=== PATIENT | female | born 1970 | race Caucasian/White ===

== ENCOUNTER 2018-11-19 08:55 | Inpatient (IN) | payer OTHER ==
[2018-11-19] MEDS: LACTATED RINGER'S 1,000 ML IV (10:00)
[2018-11-19] MEDS ORDERED: TRANEXAMIC ACID 1GM/100ML(PMX) 100 ML (10:18)
[2018-11-19] MEDS ORDERED: LIDOCAINE 2% (SDV) 5 ML INJ (10:55)
[2018-11-19] MEDS ORDERED: PROPOFOL 20 ML (10:55)
[2018-11-19] MEDS ORDERED: ROCURONIUM 50 MG INJ ×2 (10:56→10:57)
[2018-11-19] MEDS ORDERED: FENTAnyl 50 MCG/ML VIAL (10:58)
[2018-11-19] MEDS ORDERED: MIDAZOLAM 1 MG/ML 2 ML INJ (10:58)
[2018-11-19] MEDS ORDERED: CEFAZOLIN 1 GM INJ (11:35)
[2018-11-19] MEDS: POLYMYXIN/BACITRACIN 1L IRRIG (12:17)
[2018-11-19] MEDS: POLYMYXIN B 500000 UNIT INJ (12:18)
[2018-11-19] MEDS: BACITRACIN 50000 UNITS INJ (12:18)
[2018-11-19] MEDS ORDERED: DEXAMETHASONE 4 MG/ML 5 ML INJ (13:03)
[2018-11-19] MEDS ORDERED: ONDANSETRON 4 MG INJ (13:03)
[2018-11-19] MEDS ORDERED: BUPIVACAINE 0.5% (SDV) 30 ML INJ (13:31)
[2018-11-19] MEDS ORDERED: NEOSTIGMINE 3 MG/3 ML SYRINGE (13:33)
[2018-11-19] MEDS ORDERED: GLYCOPYRROLATE 0.4 MG INJ (13:33)
[2018-11-19] MEDS ORDERED: hydrALAzine 20 MG INJ IV (14:00)
[2018-11-19] MEDS ORDERED: EPHEDrine 25 MG/5 ML SYG IV (14:00)
[2018-11-19] MEDS ORDERED: ALBUTEROL 0.083% (NEB) 2.5 MG/3 ML AMP HHN (14:00)
[2018-11-19] MEDS ORDERED: DIPHENHYDRAMINE 50 MG INJ IV (14:00)
[2018-11-19] MEDS ORDERED: FENTAnyl 50 MCG/ML VIAL IV ×3 (14:00)
[2018-11-19] MEDS ORDERED: MEPERIDINE 25 MG INJ IV (14:00)
[2018-11-19] MEDS ORDERED: HYDROmorphONE 1 MG/5 ML IV SYRINGE IV ×2 (14:00)
[2018-11-19] MEDS ORDERED: METOCLOPRAMIDE 10 MG INJ IV (14:00)
[2018-11-19] MEDS ORDERED: LABETALOL HCL 20MG INJ IV (14:00)
[2018-11-19] MEDS ORDERED: KETOROLAC 30 MG INJ IV (14:00)
[2018-11-19] MEDS ORDERED: NACL 0.9% 3 ML SYG IV (14:30)
[2018-11-19] MEDS: ONDANSETRON 4 MG INJ IV ×3 (14:30→20:35)
[2018-11-19] MEDS ORDERED: oxyCODONE 5 MG TAB PO (14:30)
[2018-11-19] MEDS ORDERED: NALOXONE (0.4 MG/ML) INJ IV (14:30)
[2018-11-19] MEDS: HYDROmorphONE 1 MG/5 ML IV SYRINGE IV (14:44)
[2018-11-19] MEDS: CEFAZOLIN 2 GM/50 ML (PMX) 50 ML IVPB ×2 (14:44→22:00)
[2018-11-19] MEDS: DOCUSATE SODIUM 100 MG CAP PO (14:44)
[2018-11-19] MEDS: SOD CHLORIDE 0.9% 1,000 ML IV (16:06)
[2018-11-19] MEDS ORDERED: ALPRAZOLAM 1 MG TAB PO (17:00)
[2018-11-19] MEDS: HYDROmorphONE 1 MG/ML SYG IV (17:57)
[2018-11-19] MEDS: clonAZEPAM 0.5 MG TAB PO (20:36)
[2018-11-19] MEDS: METOPROLOL 50 MG TAB PO (20:36)
[2018-11-19] MEDS: AMLODIPINE 10 MG TAB PO (20:37)
[2018-11-19] MEDS: oxyCODONE 5 MG TAB PO (21:56)
[2018-11-19] MEDS: ZOLPIDEM 5 MG TAB PO (22:36)
[2018-11-20] MEDS: ONDANSETRON 4 MG INJ IV ×2 (01:42→09:03)
[2018-11-20] MEDS: SOD CHLORIDE 0.9% 1,000 ML IV ×2 (02:51→20:18)
[2018-11-20] MEDS: PANTOPRAZOLE (EC) 40 MG TAB PO (05:16)
[2018-11-20] MEDS: oxyCODONE 5 MG TAB PO ×4 (05:28→19:49)
[2018-11-20] MEDS: CEFAZOLIN 2 GM/50 ML (PMX) 50 ML IVPB (06:01)
[2018-11-20 06:15] LABS: ADD MAN DIFF? NO
[2018-11-20 06:28] LABS: BASOPHILS % 0.1 % (0.0-2.0); HEMATOCRIT 31.8 % (37.0-47.0); HEMOGLOBIN 10.2 g/dl (12.0-16.0); LYMPHOCYTES % 8.2 % (15.0-51.0); MEAN CORPUSCULAR HEMOGLOBIN 26.4 pg (29.0-33.0); MEAN CORPUSCULAR HGB CONC 32.1 g/dl (32.0-37.0); MEAN CORPUSCULAR VOLUME 82.4 fl (82.0-101.0); MEAN PLATELET VOLUME 10.6 fl (7.4-10.4); MONOCYTE # 0.7 10^3/ul (0.3-0.9); MONOCYTES % 5.7 % (0.0-11.0); NEUTROPHIL # 10.8 10^3/ul (1.6-7.5); NEUTROPHILS % 85.4 % (39.0-77.0); PLATELET COUNT 233 10^3/UL (140-415); RED BLOOD COUNT 3.86 10^6/ul (4.20-5.40); RED CELL DISTRIBUTION WIDTH 15.2 % (11.5-14.5)
[2018-11-20 06:28] LABS: WHITE BLOOD COUNT 12.6 10^3/ul (4.8-10.8)
[2018-11-20] MEDS ORDERED: clonAZEPAM 0.5 MG TAB PO (09:00)
[2018-11-20] MEDS ORDERED: ATENOLOL 50 MG TAB PO (09:00)
[2018-11-20] MEDS ORDERED: HYDROCHLOROTHIAZIDE 25 MG TAB PO (09:00)
[2018-11-20] MEDS: DOCUSATE SODIUM 100 MG CAP PO ×2 (09:03→21:10)
[2018-11-20] MEDS: DULOXETINE 30 MG CAP DR PO (09:04)
[2018-11-20] MEDS: METOPROLOL 50 MG TAB PO ×2 (09:04→21:12)
[2018-11-20] MEDS: ENOXAPARIN 30 MG/0.3 ML SYG SC ×2 (09:10→21:14)
[2018-11-20] MEDS: LACTATED RINGER'S 1,000 ML IV (10:00)
[2018-11-20] MEDS: MAGNESIUM HYDROXIDE 30ML CUP PO (13:01)
[2018-11-20] MEDS: HYDROmorphONE 1 MG/ML SYG IV (15:46)
[2018-11-20] MEDS: SENNA/DOCUSATE NA (8.6MG/50MG) TAB PO (16:56)
[2018-11-20] MEDS: BISACODYL 10 MG SUPP PR (19:49)
[2018-11-20] MEDS: AMLODIPINE 10 MG TAB PO (21:11)
[2018-11-20] MEDS: NA PHOSPHATE/BIPHOS 133 ML ENEMA PR (22:31)
[2018-11-20] MEDS: clonAZEPAM 0.5 MG TAB PO (22:34)
[2018-11-20] MEDS: ZOLPIDEM 5 MG TAB PO (22:34)
[2018-11-21] MEDS: oxyCODONE 5 MG TAB PO ×4 (02:24→21:12)
[2018-11-21] MEDS: SOD CHLORIDE 0.9% 1,000 ML IV ×2 (03:49→16:19)
[2018-11-21 06:00] LABS: ADD MAN DIFF? NO
[2018-11-21] MEDS: PANTOPRAZOLE (EC) 40 MG TAB PO (06:01)
[2018-11-21 06:11] LABS: BASOPHIL # 0.1 10^3/ul (0.0-0.1); BASOPHILS % 0.5 % (0.0-2.0); HEMATOCRIT 29.9 % (37.0-47.0); HEMOGLOBIN 9.3 g/dl (12.0-16.0); LYMPHOCYTES # 3.5 10^3/ul (0.8-2.9); LYMPHOCYTES % 26.3 % (15.0-51.0); MEAN CORPUSCULAR HEMOGLOBIN 26.3 pg (29.0-33.0); MEAN CORPUSCULAR HGB CONC 31.1 g/dl (32.0-37.0); MEAN CORPUSCULAR VOLUME 84.7 fl (82.0-101.0); MEAN PLATELET VOLUME 10.8 fl (7.4-10.4); MONOCYTE # 1.2 10^3/ul (0.3-0.9); MONOCYTES % 9.2 % (0.0-11.0); NEUTROPHIL # 8.3 10^3/ul (1.6-7.5); NEUTROPHILS % 63.3 % (39.0-77.0); PLATELET COUNT 211 10^3/UL (140-415); RED BLOOD COUNT 3.53 10^6/ul (4.20-5.40); RED CELL DISTRIBUTION WIDTH 15.9 % (11.5-14.5)
[2018-11-21 06:11] LABS: WHITE BLOOD COUNT 13.1 10^3/ul (4.8-10.8)
[2018-11-21] MEDS: MAGNESIUM HYDROXIDE 30ML CUP PO (06:36)
[2018-11-21] MEDS: METOPROLOL 50 MG TAB PO ×2 (09:00→20:42)
[2018-11-21] MEDS: DOCUSATE SODIUM 100 MG CAP PO ×2 (09:30→21:06)
[2018-11-21] MEDS: DULOXETINE 30 MG CAP DR PO (09:31)
[2018-11-21] MEDS: ENOXAPARIN 30 MG/0.3 ML SYG SC ×2 (09:32→21:06)
[2018-11-21] MEDS: LACTATED RINGER'S 1,000 ML IV (10:00)
[2018-11-21] MEDS: AMLODIPINE 10 MG TAB PO (20:43)
[2018-11-21] MEDS: clonAZEPAM 0.5 MG TAB PO (21:06)
[2018-11-21] MEDS: ZOLPIDEM 5 MG TAB PO (21:50)
[2018-11-22] MEDS: oxyCODONE 5 MG TAB PO ×4 (01:26→15:33)
[2018-11-22] MEDS: SOD CHLORIDE 0.9% 1,000 ML IV (04:14)
[2018-11-22 05:00] LABS: ADD MAN DIFF? NO
[2018-11-22 05:03] LABS: BASOPHIL # 0.1 10^3/ul (0.0-0.1); BASOPHILS % 0.6 % (0.0-2.0); EOSINOPHILS # 0.1 10^3/ul (0.0-0.5); EOSINOPHILS % 0.5 % (0.0-7.0); HEMATOCRIT 29.6 % (37.0-47.0); HEMOGLOBIN 9.1 g/dl (12.0-16.0); LYMPHOCYTES # 2.7 10^3/ul (0.8-2.9); MEAN CORPUSCULAR HGB CONC 30.7 g/dl (32.0-37.0); MEAN CORPUSCULAR VOLUME 84.6 fl (82.0-101.0); MEAN PLATELET VOLUME 10.4 fl (7.4-10.4); MONOCYTE # 0.9 10^3/ul (0.3-0.9); MONOCYTES % 9.8 % (0.0-11.0); NEUTROPHIL # 5.7 10^3/ul (1.6-7.5); NEUTROPHILS % 59.8 % (39.0-77.0); NUCLEATED RED BLOOD CELLS% 0.2 /100WBC (0.0-0.0); PLATELET COUNT 200 10^3/UL (140-415); RED CELL DISTRIBUTION WIDTH 15.9 % (11.5-14.5)
[2018-11-22 05:03] LABS: WHITE BLOOD COUNT 9.6 10^3/ul (4.8-10.8)
[2018-11-22] MEDS: PANTOPRAZOLE (EC) 40 MG TAB PO (05:55)
[2018-11-22] MEDS: DOCUSATE SODIUM 100 MG CAP PO (08:37)
[2018-11-22] MEDS: METOPROLOL 50 MG TAB PO (08:38)
[2018-11-22] MEDS: DULOXETINE 30 MG CAP DR PO (08:38)
[2018-11-22] MEDS: ENOXAPARIN 30 MG/0.3 ML SYG SC (08:39)
[2018-11-22 10:14] LABS: ANION GAP 4 (5-13); BLOOD UREA NITROGEN 3 mg/dl (7-20); CALCIUM 8.1 mg/dl (8.4-10.2); CARBON DIOXIDE 34 mmol/L (21-31); CHLORIDE 100 mmol/L (97-110); CREATININE 0.64 mg/dl (0.44-1.00); Estimated GFR > 60 mL/min (>60); GLUCOSE 126 mg/dl (70-220); POTASSIUM 3.5 mmol/L (3.5-5.1); SODIUM 138 mmol/L (135-144)
== END 2018-11-22 15:46 | disposition home health service (06) | DRG 470 ==
LOC: REC 08:55 → MS1 15:51
PROVIDERS: Specialist
PROC: 0SRD0J9 Replacement of Left Knee Joint with Synthetic Substitute, Cemented, Open Approach (ICD-10-PCS; principal; 2018-11-19 11:00)
DX: M17.12 Unilateral primary osteoarthritis, left knee (principal); I10 Essential (primary) hypertension; E66.9 Obesity, unspecified; Z68.35 Body mass index [BMI] 35.0-35.9, adult; F41.9 Anxiety disorder, unspecified
CPT/HCPCS: 71045; 80048; 85025; 86900; 86901; 87081; 87086; 88304; 88311; 97110; 97116; 97161; 97530